=== PATIENT | female | born 1990 | race Caucasian/White ===

== ENCOUNTER 2018-03-15 15:16 | Emergency (ER) | payer OTHER ==
[~2018-03-15] VITALS: Ht 175.3 cm; Wt 80.9 kg
[2018-03-15 16:02] VITALS: BP 133/76; Ht 175.3 cm; Wt 80.9 kg
== END 2018-03-15 17:07 | disposition home or self-care (01) ==
LOC: ED 15:16
DX: J06.9 Acute upper respiratory infection, unspecified (principal)
CPT/HCPCS: J7613; Q0092

== ENCOUNTER 2018-12-02 16:30 | Emergency (ER) | payer MEDICAID ==
[~2018-12-02] VITALS: Ht 175.3 cm; Wt 72.6 kg
[2018-12-02 16:33] VITALS: Ht 175.3 cm; Wt 72.6 kg
[2018-12-02 17:38] LABS: BASOPHIL % 0.7 % (0-2); PLATELET COUNT 374 x10^3mcL (130-400); RED CELL DISTRIBUTION WIDTH 14.2 % (11.5-14.5)
[2018-12-02 17:44] LABS: CALCIUM 9.2 mg/dL (8.5-10.1); CARBON DIOXIDE 24.6 mmol/L (21-32); CHLORIDE SERUM 104 mmol/L (98-107); CREATININE SERUM 0.6 mg/dL (0.6-1.0); GFR1 > 60 mL/min; GLUCOSE SERUM 98 mg/dL (74-106); POTASSIUM SERUM 3.3 mmol/L (3.5-5.1); SODIUM SERUM 141 mmol/L (136-145)
[2018-12-02 17:49] LABS: ALBUMIN 4.5 g/dL (3.4-5.0); ALKALINE PHOSPHATASE 85 U/L (46-116); ALT/SGPT 17 U/L (14-59); AST/SGOT 15 U/L (15-37); BILIRUBIN TOTAL 0.5 mg/dL (0.20-1.00); TOTAL PROTEIN, SERUM 8.1 g/dL (6.4-8.2)
[2018-12-02 22:49] VITALS: BP 119/77
== END 2018-12-02 23:05 | disposition home or self-care (01) ==
LOC: ED 16:30
PROVIDERS: Emergency Medicine
DX: J20.9 Acute bronchitis, unspecified (principal); J45.909 Unspecified asthma, uncomplicated; Z90.49 Acquired absence of other specified parts of digestive tract
CPT/HCPCS: 83880; 85378; J2930; J7030; J7620; Q0092

== ENCOUNTER 2019-03-18 14:34 | Emergency (ER) | payer SELFPAY ==
[~2019-03-18] VITALS: Ht 152.4 cm; Wt 68.9 kg
[2019-03-18 16:37] VITALS: BP 144/69
== END 2019-03-18 16:37 | disposition home or self-care (01) ==
LOC: ED 14:34
DX: F41.9 Anxiety disorder, unspecified (principal); F41.0 Panic disorder [episodic paroxysmal anxiety]